=== PATIENT | male | born 1985 | race Two or more races ===

== ENCOUNTER 2022-10-09 10:59 | Emergency (ER) | payer MEDICAID, OTHER ==
[~2022-10-09] VITALS: Ht 160 cm; Wt 105.0 kg
[2022-10-09 11:17] VITALS: BP 128/87
[2022-10-09] MEDS ORDERED: KETOROLAC TROMETH 30 MG/ML 1ML VIAL IM ONE (12:30)
[2022-10-09] MEDS ORDERED: DexAMETHasone SOD PHOS 10MG/1ML VIAL INJ IM ONE (12:30)
[2022-10-09] MEDS ORDERED: ALL100T PO (13:17)
[2022-10-09] MEDS ORDERED: COLC1TAB3 PO (13:17)
[2022-10-09] MEDS ORDERED: IBUP1TAB5 PO (13:25)
== END 2022-10-09 13:37 | disposition home or self-care (01) ==
LOC: ER 10:59
DX: M10.9 Gout, unspecified (principal); R60.0 Localized edema
CPT/HCPCS: 96372; 99284; J1100; J1885

== ENCOUNTER 2023-08-12 18:42 | Emergency (ER) | payer MEDICAID ==
[~2023-08-12] VITALS: Ht 167.6 cm; Wt 101.4 kg
[~2023-08-12 18:42] MED LIST: ALL100T PO; COLC1TAB3 PO; IBUP1TAB5 PO
[2023-08-12 23:32] VITALS: BP 126/82; PULSE 83; RESP 16; TEMP 97.8
[2023-08-13 00:12] LABS: Basophils # (auto) 0.1 10 ^3/uL (0-0.2); Basophils % (auto) 0.9 % (0.0-2.0); Eosinophils # (auto) 0.2 10 ^3/uL (0-0.8); Eosinophils % (auto) 1.6 % (0.0-7.0); Hematocrit 46.8 % (41.0-53.0); Hemoglobin 15.8 g/dL (13.5-17.5); Lymphocytes # (auto) 4.3 10 ^3/uL (0.4-5.4); Lymphocytes % (auto) 41.7 % (10.0-50.0); Mean Corpuscular Hemoglobin 29.3 pg (28.0-32.0); Mean Corpuscular Hgb Conc. 33.8 g/dL (32.0-36.0); Mean Corpuscular Volume 86.8 fL (80.0-100.0); Monocytes # (auto) 1.1 10 ^3/uL (0-1.3); Monocytes % (auto) 10.9 % (0.0-12.0); Neutrophils # (auto) 4.6 10 ^3/uL (1.6-8.6); Neutrophils % (auto) 44.9 % (37.0-80.0); Red Blood Cells 5.39 10^6/uL (4.5-5.90); White Blood Cell 10.3 10^3/uL (4.4-10.8)
[2023-08-13] MEDS ORDERED: IBUP-1456 PO (00:56)
[2023-08-13 01:11] VITALS: O2SAT 96
[2023-08-13] MEDS: KETOROLAC TROMETH 60MG/2ML VIAL IM ONE (01:21)
== END 2023-08-13 01:46 | disposition home or self-care (01) ==
LOC: ER 18:42
DX: S50.02XA Contusion of left elbow, initial encounter (principal); S50.12XA Contusion of left forearm, initial encounter; Z79.1 Long term (current) use of non-steroidal anti-inflammatories (NSAID); Z79.899 Other long term (current) drug therapy; X58.XXXA Exposure to other specified factors, initial encounter; Y93.89 Activity, other specified; Y92.89 Other specified places as the place of occurrence of the external cause; Y99.8 Other external cause status
CPT/HCPCS: 36415; 73200; 76881; 85025; 96372; 99285; J1885